=== PATIENT | female | born 1965 | race Caucasian/White ===

== ENCOUNTER → 2017-07-14 | Outpatient (CLI) | payer BC ==
--- NOTE | 2017-07-14 09:40 | DIAGNOSTIC IMAGING REPORT ---
R SHOULDER MIN 2 VIEWS HISTORY: 52 years-old Female RIGHT SHOULDER PAIN acute right shoulder pain COMPARISON: None available TECHNIQUE: 3 views of the right shoulder FINDINGS: There is mild acromioclavicular and glenohumeral osteoarthritis without acute fracture or dislocation. Imaged right lung green appear clear. No opaque foreign body. IMPRESSION: Mild degenerative changes without acute fracture or dislocation. The above report was generated using voice recognition software. It may contain grammatical, syntax or spelling errors. Electronically signed by: Fernando Lantigua M.D. 07/14/2017 9:39 AM Dictated Date/Time: 07/14/2017 9:38 AM
== END | disposition home or self-care (01) ==
LOC: C.RDSM 10:13
PROVIDERS: ATTEND Family Medicine
DX: M25.511 Pain in right shoulder (principal); M89.8X1 Other specified disorders of bone, shoulder